=== PATIENT | male | born 1945 | race Caucasian/White ===

== ENCOUNTER → 2021-10-09 16:56 | Outpatient (CLI) | payer MEDICARE, SELFPAY ==
[2021-10-09 19:17] LABS: Benzodiazepines Screen,Urine Positive ng/ml (<200)
[2021-10-09 19:18] LABS: Amphetamine/Metha Screen,Urine Negative ng/ml (<1000)
[2021-10-09 19:19] LABS: Barbiturates Screen,Urine Negative ng/ml (<200); Methadone Screen,Urine Negative ng/ml (<300)
[2021-10-09 19:20] LABS: Cannabinoid Screen,Urine Negative ng/ml (<50); Cocaine Screen,Urine Negative ng/ml (<300)
[2021-10-09 19:21] LABS: Opiate Screen,Urine Positive ng/ml (<300)
[2021-10-09 19:22] LABS: Phencyclidine Screen,Urine Negative ng/ml (<25)
== END ==
PROVIDERS: PCP Internal Medicine; Visit Provider Internal Medicine
DX: M79.7 Fibromyalgia (principal); M15.0 Primary generalized (osteo)arthritis; M75.101 Unspecified rotator cuff tear or rupture of right shoulder, not specified as traumatic; M75.102 Unspecified rotator cuff tear or rupture of left shoulder, not specified as traumatic
CPT/HCPCS: 80305

== ENCOUNTER 2023-09-24 14:39 | Emergency (ER) | payer MEDICARE, SELFPAY ==
[2023-09-24 14:43] VITALS: BP 0/0; PULSE 0; RESP 0; TEMP -17.7; TEMP 0
== END 2023-09-24 14:44 | disposition left against medical advice (07) ==
LOC: UTC 14:47
PROVIDERS: Emergency Provider Nurse Practitioner Family; PCP Internal Medicine
DX: Z53.21 Procedure and treatment not carried out due to patient leaving prior to being seen by health care provider (principal)